=== PATIENT | female | born 1960 | race Caucasian/White ===

== ENCOUNTER 2016-07-10 09:17 | Outpatient (CLI) | payer OTHER | END 2016-07-10 09:18 | disposition home or self-care (01) | DX: N63 Unspecified lump in breast (principal) ==

== ENCOUNTER 2017-07-19 08:00 | Outpatient (CLI) | payer OTHER ==
[2017-07-19 12:57] LABS: BASOPHILS % (AUTO) 0.8 %; EOSINOPHILS % (AUTO) 0.8 %; HGB - HEMOGLOBIN 13.6 g/dL (12.0-16.0); LYMPHOCYTES # (AUTO) 0.9 10^3/uL (1.5-3.5); LYMPHOCYTES % (AUTO) 21.2 %; MEAN CORPUSCULAR HEMOGLOBIN 29.9 pg (27.0-31.0); MEAN CORPUSCULAR HGB CONC 34.8 g/dL (32.0-36.0); MEAN CORPUSCULAR VOLUME 85.9 fL (81.0-99.0); MEAN PLATELET VOLUME 9.2 fL (7.9-10.8); MONOCYTES # (AUTO) 0.2 10^3/uL (0.0-1.0); MONOCYTES % (AUTO) 4.1 %; NEUTROPHILS # (AUTO) 2.9 10^3/uL (1.5-6.6); NEUTROPHILS % (AUTO) 73.1 %; PLT - PLATELET COUNT 188 10^3/uL (130-450); RED BLOOD COUNT 4.55 10^6/uL (4.20-5.40); RED CELL DISTRIBUTION WIDTH 13.1 % (12.0-15.0)
[2017-07-19 13:11] LABS: ALBUMIN 4.4 g/dL (3.2-5.5); ALBUMIN/GLOBULIN RATIO 1.7 (1.0-2.2); ALKALINE PHOSPHATASE 65 IU/L (42-121); ALT ALANINE AMINOTRANSFERASE 30 IU/L (10-60); AST ASPARTATE AMINOTRANSFERASE 25 IU/L (10-42); BILIRUBIN,TOTAL 0.8 mg/dL (0.2-1.0); BUN - BLOOD UREA NITROGEN 16 mg/dL (6-20); CALCIUM 9.1 mg/dL (8.5-10.3); CARBON DIOXIDE - CO2 29 mmol/L (21-32); CHLORIDE 102 mmol/L (101-111); CHOL/HDL RATIO 6.2 (<4.4); CHOLESTEROL 272 mg/dL; CREATININE 0.5 mg/dL (0.4-1.0); GFR - MDRD 128 (>89); GLUCOSE 97 mg/dL (70-100); HB2 TOTAL 14.8 g/dL; HDL CHOLESTEROL 44 mg/dL; HEMOGLOBIN A1C 0.51 g/dL; HEMOGLOBIN A1C % 5.3 % (4.6-6.2); LDL CHOLESTEROL,CALCULATED 198 mg/dL; LDL/HDL RATIO 4.5 (<4.4); SODIUM 135 mmol/L (135-145); VLDL CHOLESTEROL 30 mg/dL
== END 2017-07-19 08:01 | disposition home or self-care (01) ==
LOC: LAB.WCP 08:00
PROVIDERS: ATTEND Family Medicine
DX: Z00.00 Encounter for general adult medical examination without abnormal findings (principal)
CPT/HCPCS: 36415; 80053; 80061; 83036; 83721; 84443; 85025

== ENCOUNTER 2017-08-10 10:10 | Outpatient (CLI) | payer OTHER ==
--- NOTE | 2017-08-11 13:51 | Mammography Report ---
DIGITAL SCREENING MAMMOGRAM: 08/10/2017 CLINICAL INDICATION: A 57-year-old for screening. COMPARISON: 06/2016, 01/2010. TECHNIQUE: Routine CC and MLO projections were obtained of the breasts. FINDINGS: Scattered fibroglandular tissue is present within the breasts. There are no dominant masses, suspicious microcalcifications, or secondary signs of malignancy. In comparison to the previous studies, there are no significant changes. IMPRESSION: NO MAMMOGRAPHIC EVIDENCE OF MALIGNANCY. NO SIGNIFICANT INTERVAL CHANGES. RECOMMENDATION: Screening mammography is recommended annually. BIRADS CATEGORY 1 - NEGATIVE. STANDARD QUALIFYING STATEMENTS: 1. This examination was reviewed with the aid of Computed-Aided Detection (CAD). 2. A negative or benign imaging report should not delay biopsy if clinically suspicious findings are present. Consider surgical consultation if warranted. More than 5% of cancers are not identified by imaging. 3. Dense breasts may obscure an underlying neoplasm. TD: 08/11/2017 13:50
== END 2017-08-10 10:11 | disposition home or self-care (01) ==
LOC: DI.N 10:10
PROVIDERS: ATTEND Family Medicine
DX: Z12.31 Encounter for screening mammogram for malignant neoplasm of breast (principal)
CPT/HCPCS: 77067

== ENCOUNTER 2017-10-25 09:58 | Outpatient (CLI) | payer OTHER ==
[2017-10-25 13:25] LABS: ALBUMIN 4.1 g/dL (3.2-5.5); ALBUMIN/GLOBULIN RATIO 1.4 (1.0-2.2); ALKALINE PHOSPHATASE 48 IU/L (42-121); ALT ALANINE AMINOTRANSFERASE 20 IU/L (10-60); AST ASPARTATE AMINOTRANSFERASE 20 IU/L (10-42); BILIRUBIN,TOTAL 0.6 mg/dL (0.2-1.0); BUN - BLOOD UREA NITROGEN 17 mg/dL (6-20); CALCIUM 9.1 mg/dL (8.5-10.3); CARBON DIOXIDE - CO2 30 mmol/L (21-32); CHLORIDE 103 mmol/L (101-111); CHOL/HDL RATIO 3.6 (<4.4); CHOLESTEROL 189 mg/dL; CREATININE 0.3 mg/dL (0.4-1.0); GFR - MDRD 230 (>89); GLUCOSE 96 mg/dL (70-100); HDL CHOLESTEROL 53 mg/dL; LDL CHOLESTEROL,CALCULATED 113 mg/dL; LDL/HDL RATIO 2.1 (<4.4); SODIUM 138 mmol/L (135-145); TOTAL PROTEIN 7.1 g/dL (6.7-8.2); VLDL CHOLESTEROL 23 mg/dL
== END 2017-10-25 09:59 | disposition home or self-care (01) ==
LOC: LAB.WCP 09:58
PROVIDERS: ATTEND Family Medicine
DX: E78.5 Hyperlipidemia, unspecified (principal)
CPT/HCPCS: 36415; 80053; 80061; 83721

== ENCOUNTER 2018-09-12 11:58 | Outpatient (CLI) | payer OTHER ==
[2018-09-12 19:06] LABS: BASOPHILS % (AUTO) 0.6 %; EOSINOPHILS % (AUTO) 1.3 %; HGB - HEMOGLOBIN 13.5 g/dL (12.0-16.0); LYMPHOCYTES # (AUTO) 1.1 10^3/uL (1.5-3.5); MEAN CORPUSCULAR HEMOGLOBIN 29.3 pg (27.0-31.0); MEAN CORPUSCULAR HGB CONC 33.5 g/dL (32.0-36.0); MEAN CORPUSCULAR VOLUME 87.5 fL (81.0-99.0); MEAN PLATELET VOLUME 9.4 fL (7.9-10.8); MONOCYTES # (AUTO) 0.2 10^3/uL (0.0-1.0); MONOCYTES % (AUTO) 4.7 %; NEUTROPHILS # (AUTO) 2.5 10^3/uL (1.5-6.6); NEUTROPHILS % (AUTO) 65.4 %; PLT - PLATELET COUNT 180 10^3/uL (130-450); RED BLOOD COUNT 4.62 10^6/uL (4.20-5.40); RED CELL DISTRIBUTION WIDTH 13.3 % (12.0-15.0); WHITE BLOOD COUNT 3.8 x10^3/uL (4.8-10.8)
[2018-09-12 19:14] LABS: ALBUMIN 4.4 g/dL (3.2-5.5); ALBUMIN/GLOBULIN RATIO 1.5 (1.0-2.2); ALKALINE PHOSPHATASE 59 IU/L (42-121); ALT ALANINE AMINOTRANSFERASE 23 IU/L (10-60); AST ASPARTATE AMINOTRANSFERASE 25 IU/L (10-42); BILIRUBIN,TOTAL 0.9 mg/dL (0.2-1.0); BUN - BLOOD UREA NITROGEN 16 mg/dL (6-20); CALCIUM 9.5 mg/dL (8.5-10.3); CARBON DIOXIDE - CO2 27 mmol/L (21-32); CHLORIDE 104 mmol/L (101-111); CHOLESTEROL 181 mg/dL; CREATININE 0.6 mg/dL (0.4-1.0); GFR - MDRD 103 (>89); GLUCOSE 93 mg/dL (70-100); HDL CHOLESTEROL 60 mg/dL; LDL CHOLESTEROL,CALCULATED 103 mg/dL; LDL/HDL RATIO 1.7 (<4.4); SODIUM 141 mmol/L (135-145); TOTAL PROTEIN 7.3 g/dL (6.7-8.2); VLDL CHOLESTEROL 18 mg/dL
[2018-09-12 19:43] LABS: HB2 TOTAL 14.4 g/dL; HEMOGLOBIN A1C 0.52 g/dL; HEMOGLOBIN A1C % 5.5 % (4.6-6.2)
[2018-09-13 08:27] LABS: HEPATITIS C ANTIBODY NON-REACTIVE (NON-REACTIVE)
== END 2018-09-12 11:59 | disposition home or self-care (01) ==
LOC: LAB.WCP 11:58
PROVIDERS: ATTEND Family Medicine
DX: Z00.00 Encounter for general adult medical examination without abnormal findings (principal); E78.5 Hyperlipidemia, unspecified; F32.9 Major depressive disorder, single episode, unspecified; Z11.59 Encounter for screening for other viral diseases
CPT/HCPCS: 36415; 80053; 80061; 83036; 83721; 84443; 85025; 86803

== ENCOUNTER 2018-10-24 08:00 | Outpatient (CLI) | payer OTHER ==
[2018-10-24 12:00] LABS: HGB - HEMOGLOBIN 13.4 g/dL (12.0-16.0); MEAN CORPUSCULAR HEMOGLOBIN 29.1 pg (27.0-31.0); MEAN CORPUSCULAR HGB CONC 32.4 g/dL (32.0-36.0); MEAN CORPUSCULAR VOLUME 89.6 fL (81.0-99.0); RED BLOOD COUNT 4.61 10^6/uL (4.20-5.40); RED CELL DISTRIBUTION WIDTH 12.5 % (12.0-15.0); WHITE BLOOD COUNT 4.2 x10^3/uL (4.8-10.8)
== END 2018-10-24 23:59 | disposition home or self-care (01) ==
LOC: LAB.WCP 08:00
PROVIDERS: ATTEND Family Medicine
DX: D72.819 Decreased white blood cell count, unspecified (principal)
CPT/HCPCS: 36415; 85027

== ENCOUNTER 2018-11-02 12:22 | Outpatient (CLI) | payer OTHER ==
--- NOTE | 2018-11-03 09:24 | Mammography Report ---
Reason: SCREENING MAMMO Procedure Date: 11/02/2018 Accession Number: [id number] / [id number] Procedure: [facility] - Screening Mammo Dig Bilat CPT Code: FULL RESULT: EXAM: Screening Mammo Dig Bilat DATE: 11/02/2018 12:40 PM CLINICAL HISTORY: Screening encounter. No reported risk factors. TECHNIQUE: (B) - Bilateral CC and MLO views were obtained. COMPARISON: 08/10/2017 through 01/30/2010. PARENCHYMAL PATTERN: (A) - The breast(s) demonstrate(s) scattered fibroglandular densities. FINDINGS: In the left breast axillary tail region as seen on the cc projection, approximately 8 cm from the nipple is apparently slowly increasing asymmetry, isodense to nearby breast parenchyma in 2017, mildly increased in 2018 and once again increased on today's study. This finding potentially represents overlapping breast tissue, result of technique, but needs to be clarified with spot mammographic imaging and potentially ultrasound imaging. There are no suspicious masses, calcifications, or areas of distortion in the right breast. IMPRESSION: Incomplete examination. BI-RADS category 0. RECOMMENDATION: ([facility]) - Additional views using both Mammography and Ultrasound recommended. Left breast axillary tail. BI-RADS CATEGORY: (0) - Incomplete Examination - need additional evaluation. STANDARD QUALIFYING STATEMENTS: 1. This examination was not reviewed with the aid of Computer-Aided Detection (CAD). 2. A negative or benign imaging report should not preclude biopsy if clinically suspicious findings are present. 3. Dense breasts may obscure an underlying neoplasm. 4. This examination was reviewed without the aid of 3D breast imaging (tomosynthesis).
== END 2018-11-02 12:23 | disposition home or self-care (01) ==
LOC: DI.N 12:22
DX: Z12.31 Encounter for screening mammogram for malignant neoplasm of breast (principal)
CPT/HCPCS: 77067

== ENCOUNTER 2018-11-10 08:49 | Outpatient (CLI) | payer OTHER ==
--- NOTE | 2018-11-10 12:33 | Mammography Report ---
Reason: ABNORMAL MAMMOGRAM Procedure Date: 11/10/2018 Accession Number: [id number] / [id number] Procedure: GRACIELA - Diag Special Views Dig LT CPT Code: FULL RESULT: EXAM: Diag Special Views Dig LT DATE: 11/10/2018 10:20 AM CLINICAL HISTORY: Diagnostic examination. The patient is recalled from screening for a left breast asymmetry. TECHNIQUE: (L) - Left left spot CC, left laterally exaggerated CC and left ML images are obtained. COMPARISON: 11/02/2018 through 01/30/2010. PARENCHYMAL PATTERN: (A) - The breast(s) demonstrate(s) scattered fibroglandular densities. FINDINGS: The focal asymmetry dissipates with spot and laterally exaggerated views and no underlying architectural distortion or masses detected with 3-D mammography. There are no suspicious masses, calcifications, or areas of distortion. IMPRESSION: Negative examination. BI-RADS category 1. RECOMMENDATION: (ANNUAL) - Recommend routine annual screening mammography. BI-RADS CATEGORY: (1) - Negative. STANDARD QUALIFYING STATEMENTS: 1. This examination was not reviewed with the aid of Computer-Aided Detection (CAD). 2. A negative or benign imaging report should not preclude biopsy if clinically suspicious findings are present. 3. Dense breasts may obscure an underlying neoplasm. 4. This examination was reviewed with the aid of 3D breast imaging (tomosynthesis).
== END 2018-11-10 08:50 | disposition home or self-care (01) ==
LOC: DI 08:49
PROVIDERS: ATTEND Family Medicine
DX: R92.8 Other abnormal and inconclusive findings on diagnostic imaging of breast (principal)

== ENCOUNTER 2020-04-16 09:36 | Outpatient (CLI) | payer OTHER ==
--- NOTE | 2020-04-17 12:28 | Mammography Report ---
BILATERAL DIGITAL SCREENING MAMMOGRAM 3D/2D: 04/16/2020 CLINICAL: Routine screening. Comparison is made to exams dated: 11/10/2018 mammogram, 11/02/2018 mammogram, 08/10/2017 mammogram, 07/10 mammogram, and 07/10/2016 ultrasound - [facility]. There are scattered fibrog landular elements in both breasts. No significant masses, calcifications, or other findings are seen in either breast. There has been no significant interval change. IMPRESSION: NEGATIVE There is no mammographic evidence of malignancy. A 1 year screening mammogram is recommended. This exam was interpreted at Station ID: [id number]. NOTE: For mammograms, a report in lay terms will be sent to the patient. Approximately 15% of breast malignancies will not be visualized mammographically. In the management of a palpable breast mass, a negative mammogram must not discourage biopsy of a clinically suspicious lesion. Electronically Signed By: Juan Miguel Nuno M.D. aty/penrad:04/16/2020 10:09:26 ACR BI-RADS Category 1: Negative 3341F PARENCHYMAL PATTERN: (A) - The breast(s) demonstrate(s) scattered fibroglandular densities. BI-RADS CATEGORY: (1) - 1 RECOMMENDATION: (ANNUAL) - Recommend routine annual screening mammography. [id number] 1 year screening LATERALITY: (B)
== END 2020-04-16 09:37 | disposition home or self-care (01) ==
LOC: DI.N 09:36
DX: Z12.31 Encounter for screening mammogram for malignant neoplasm of breast (principal)
CPT/HCPCS: 77067

== ENCOUNTER 2020-10-29 08:00 | Outpatient (CLI) | payer OTHER | END 2020-10-29 23:59 | disposition home or self-care (01) | LOC: LAB.N 08:00 | PROVIDERS: ATTEND Physician Assistant Medical | DX: N30.00 Acute cystitis without hematuria (principal) | CPT/HCPCS: 87086; 87181 ==

== ENCOUNTER 2020-11-14 08:19 | Outpatient (CLI) | payer OTHER ==
[2020-11-14 11:43] LABS: BASOPHILS % (AUTO) 0.7 %; EOSINOPHILS # (AUTO) 0.1 10^3/uL (0.0-0.7); EOSINOPHILS % (AUTO) 1.9 %; HCT - HEMATOCRIT 41.9 % (37.0-47.0); HGB - HEMOGLOBIN 13.8 g/dL (12.0-16.0); LYMPHOCYTES # (AUTO) 1.2 10^3/uL (1.5-3.5); LYMPHOCYTES % (AUTO) 27.6 %; MEAN CORPUSCULAR HEMOGLOBIN 30.1 pg (27.0-31.0); MEAN CORPUSCULAR HGB CONC 32.9 g/dL (32.0-36.0); MEAN CORPUSCULAR VOLUME 91.3 fL (81.0-99.0); MONOCYTES # (AUTO) 0.2 10^3/uL (0.0-1.0); MONOCYTES % (AUTO) 4.7 %; NEUTROPHILS # (AUTO) 2.8 10^3/uL (1.5-6.6); NEUTROPHILS % (AUTO) 64.9 %; PLT - PLATELET COUNT 201 10^3/uL (130-450); RED BLOOD COUNT 4.59 10^6/uL (4.20-5.40); RED CELL DISTRIBUTION WIDTH 12.4 % (12.0-15.0); WHITE BLOOD COUNT 4.3 x10^3/uL (4.8-10.8)
[2020-11-14 12:45] LABS: THYROID STIMULATING HORMONE 2.89 uIU/mL (0.34-5.60)
[2020-11-14 13:44] LABS: ALBUMIN 4.5 g/dL (3.2-5.5); ALBUMIN/GLOBULIN RATIO 1.6 (1.0-2.2); ALKALINE PHOSPHATASE 48 IU/L (42-121); ALT ALANINE AMINOTRANSFERASE 22 IU/L (10-60); AST ASPARTATE AMINOTRANSFERASE 19 IU/L (10-42); BILIRUBIN,TOTAL 0.8 mg/dL (0.2-1.0); BUN - BLOOD UREA NITROGEN 19 mg/dL (6-20); CHOL/HDL RATIO 3.5 (<4.4); CHOLESTEROL 245 mg/dL; CREATININE 0.6 mg/dL (0.4-1.0); GFR - MDRD 102 (>89); HDL CHOLESTEROL 70 mg/dL; LDL CHOLESTEROL,CALCULATED 155 mg/dL; LDL/HDL RATIO 2.2 (<4.4); TOTAL PROTEIN 7.4 g/dL (6.7-8.2); TRIGLYCERIDES 102 mg/dL; VLDL CHOLESTEROL 20 mg/dL
[2020-11-14 14:01] LABS: CALCIUM 9.4 mg/dL (8.5-10.3); CARBON DIOXIDE - CO2 29 mmol/L (21-32); CHLORIDE 103 mmol/L (101-111); GLUCOSE 101 mg/dL (70-100); POTASSIUM 4.2 mmol/L (3.5-5.0); SODIUM 140 mmol/L (135-145)
== END 2020-11-14 08:20 | disposition home or self-care (01) ==
LOC: LAB.N 08:19
PROVIDERS: ATTEND Family Medicine
DX: E78.5 Hyperlipidemia, unspecified (principal)
CPT/HCPCS: 36415; 80053; 80061; 83721; 84443; 85025

== ENCOUNTER 2023-04-22 09:30 | Outpatient (CLI) | payer OTHER ==
--- NOTE | 2023-04-23 11:34 | Mammography Report ---
BILATERAL DIGITAL SCREENING MAMMOGRAM 3D/2D: 04/22/2023 CLINICAL: Routine screening. Comparison is made to exams dated: 04/16/2020 mammogram, 11/10/2018 mammogram, and 11/02/2018 mammogram - [facility]. There are scattered areas of fibroglandular density in both breasts (category b / 25%-50% glandular t issue). No significant masses, calcifications, or other findings are seen in either breast. There has been no significant interval change. IMPRESSION: NEGATIVE There is no mammographic evidence of malignancy. A 1 year screening mammogram is recommended. Based on the Tyrer Cuzick model (a risk assessment model) the patients lifetime risk is 8.1% and her 10 year risk is 3.5%. According to the ACR, ACS, and NCCN guidelines, an annual breast MRI exam srinivasa g with mammogram is recommended if the patients lifetime risk is 20% or greater. This exam was interpreted at Station ID: [id number]. NOTE: For mammograms, a report in lay terms will be sent to the patient. Approximately 15% of breast malignancies will not be visualized mammographically. In the management of a palpable breast mass, a negative mammogram must not discourage biopsy of a clinically suspicious lesion. Electronically Signed By: Brian schwarz/sigrid:04/22/2023 11:55:46 letter sent: No_Letter ACR BI-RADS Category 1: Negative 3341F PARENCHYMAL PATTERN: (A) - The breast(s) demonstrate(s) scattered fibroglandular densities. BI-RADS CATEGORY: (1) - 1 Mammogram [id number] 1 year screening LATERALITY: (B)
== END 2023-04-22 09:31 | disposition home or self-care (01) ==
LOC: DI.N 09:30
DX: Z12.31 Encounter for screening mammogram for malignant neoplasm of breast (principal); R92.323 Mammographic fibroglandular density, bilateral breasts